=== PATIENT | female | born 1935 | race Caucasian/White ===

== ENCOUNTER 2018-11-02 13:49 | Inpatient (IN) ==
--- NOTE | 2018-11-02 14:40 | PROVIDER DOCUMENTATION ---
HPI-Neurological Disorder - General Chief Complaint: Weakness Stated Complaint: Stroke-like symptoms Time Seen by Provider: 11/02/18 14:09 Source: EMS, senior living records Unable to obtain history due to:: altered Allergies/Adverse Reactions: Patient Allergies Allergy/AdvReac Type Severity Reaction Status Date / Time No Known Allergies Allergy Verified 07/19/18 11:22 Home Medications: Home Medication List Medication Instructions Recorded Confirmed Last Taken Type Amlodipine Besylate 10 mg PO DAILY 09/08/12 11/02/18 07/16/18 History Losartan Potassium 100 mg PO DAILY 09/08/12 08/27/18 07/16/18 History Metformin [Glucophage] 1,000 mg PO BID CC 09/08/12 11/02/18 07/16/18 History Rosuvastatin Calcium [Crestor] 40 mg PO QHS 09/08/12 11/02/18 07/16/18 History Isosorbide Mononitrate [Isosorbide 30 mg PO DAILY 07/17/18 11/02/18 07/16/18 History Mononitrate ER] Levothyroxine [Synthroid] 88 microgm PO DAILY 07/17/18 11/02/18 07/17/18 History Metoprolol Succinate 25 mg PO DAILY 07/17/18 11/02/18 Unknown History Cholecalciferol (Vitamin D3) 800 unit PO DAILY 11/02/18 11/02/18 Unknown History [Vitamin D] Cyanocobalamin (Vitamin B-12) 1,000 mcg PO DAILY 11/02/18 11/02/18 Unknown History [Vitamin B12] Gabapentin 100 mg PO Q8H 11/02/18 11/02/18 Unknown History Insulin Glargine,Hum.rec.anlog 10 unit SQ QAM 11/02/18 11/02/18 Unknown History [Lantus Solostar] Insulin Regular, Human [Novolin R] 10 unit SQ QAM 11/02/18 11/02/18 Unknown History Memantine [Namenda] 5 mg PO QHS 11/02/18 11/02/18 Unknown History Multivits,Ca,Minerals/Iron/FA 1 ea PO DAILY 11/02/18 11/02/18 Unknown History [Thera M Plus Tablet] Quetiapine Fumarate [Seroquel] 25 mg PO DAILY 11/02/18 11/02/18 Unknown History Quetiapine [Seroquel] 100 mg PO QHS 11/02/18 11/02/18 Unknown History Trazodone [Desyrel] 50 mg PO QHS 11/02/18 11/02/18 Unknown History - History of Present Illness-Neuro Nature of Presenting Problem: HPI: Pt is sent to ED from [facility] today for AMS. She has PMH od Alzheimers, GERD, HTN, HLD, DM2, Hypothyroidism. They stated she has had diarrhea, nausea and vomiting for the past 3 days. They also report "abnormal labs,' but did not specifiy what labs. Her FBG was 333. They were concerned that one pupil was pinpoint and they other was normal. She is non-responsive at baseline. Onset/Duration: reports: 3 days ago Timing: reports: still present Context: reports: found unresponsive by senior living staff Approximate time patient was last seen normal?: 11:45 Character of Altered Mental Status: reports: other (pt is not responsive at baseline) Any recent trauma/injury?: reports: none New weakness or altered sensation location:: reports: none Cognitive Baseline: alert but disoriented Associated Symptoms: reports: denies symptoms Similar Symptoms Previously?: No Recently seen or treated by another doctor?: Yes Review of Systems - Adult - REVIEW OF SYSTEMS - ADULT ROS:: unobtainable per condition Constitutional: reports: no symptoms reported Eyes: reports: no symptoms reported Ears, Nose, Mouth & Throat: reports: no symptoms reported Cardiovascular: reports: no symptoms reported Respiratory: reports: no symptoms reported Gastrointestinal: reports: no symptoms reported Genitourinary: reports: no symptoms reported Musculoskeletal: reports: no symptoms reported Integumentary: reports: no symptoms reported Neurological: reports: no symptoms reported Psychiatric: reports: no symptoms reported Endocrine: reports: no symptoms reported Hematologic/Lymphatic: reports: no symptoms reported Allergic/Immunologic: reports: no symptoms reported All Other Systems: Reviewed and Negative Past History - Adult - PAST MEDICAL HISTORY-ADULT Review of Records: reports: Nursing Assessment Review, Medications Reviewed, Social history reviewed & non-contributory. Major Childhood Illnesses: reports: denies history Cardiovascular: reports: HTN, hyperlipidemia Respiratory: reports: sleep apnea Gastrointestinal: reports: GERD Obstetrical/Gynecological: reports: denies history Genitourinary: reports: denies history Musculoskeletal: reports: denies history Neurological: reports: Alzheimer's, dementia Endocrine/Immune: reports: Diabetes Other Conditions: reports: denies history - PRIOR SURGERIES/PROCEDURES Surgical/Procedure History: reports: reviewed, not pertinent, BTL, other (cataract removal, breast biopsy) - IMMUNIZATION STATUS Childhood Immunizations: See Nurse Assessment Flu Vaccine: See Nurse Assessment - FAMILY HISTORY Family History: reviewed, not pertinent - SOCIAL HISTORY Smoking: denies Substance Use: none/never Alcohol Use Frequency: never Living Situation: care facility Physical Exam- Neurological - Physical Exam-Neuro Initial Vital Signs Reviewed: Yes General Appearance: other (able to respond but is alseep in bed) Eye Exam: right eye: PERRL HENMT: normocephalic/atraumatic, moist mucous membranes, normal ENT inspection Head Injury: no evidence of injury Neck: full range of motion Respiratory: chest non-tender, lungs clear, normal breath sounds. negative: crackles, rales, rhonchi, wheezing Cardiovascular: normal peripheral pulses, regular rate, rhythm, no edema Abdominal Exam: normal bowel sounds, non tender, soft. negative: rigid, rebound, tenderness Peripheral Pulses: radial (R): 2+, radial (L): 2+, dorsalis-pedis (R): 2+, dorsalis-pedis (L): 2+ Extremity: non-tender, normal inspection, no pedal edema, calf tenderness. 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 negative: normal mood/affect, normal thought content, normal thought process, oriented x 3 - Glascow Coma Scale Best Eye Response: (2) open to pain Best Verbal Response: (2) incomprehsible sounds Best Motor Response: (4) withdraws to pain (8) Progress - PLAN OF CARE/RESULTS Progress/Plan/Lab Results: Vital Signs - 8 hr 11/02/18 14:20 11/02/18 15:32 11/02/18 15:47 Temperature 97.4 F L Pulse Rate 72 69 64 Respiratory Rate 19 21 17 Blood Pressure 74/52 81/45 87/50 O2 Sat by Pulse Oximetry 97 98 95 11/02/18 15:48 11/02/18 15:50 11/02/18 16:00 Temperature Pulse Rate 73 66 63 Respiratory Rate 17 15 15 Blood Pressure O2 Sat by Pulse Oximetry 94 L 97 95 11/02/18 16:01 11/02/18 16:10 11/02/18 16:17 Temperature Pulse Rate 67 64 63 Respiratory Rate 17 15 13 Blood Pressure 92/51 94/51 O2 Sat by Pulse Oximetry 96 93 L 11/02/18 16:20 11/02/18 16:30 11/02/18 16:32 Temperature Pulse Rate 63 67 63 Respiratory Rate 13 14 16 Blood Pressure 80/42 O2 Sat by Pulse Oximetry 100 96 97 11/02/18 16:47 11/02/18 17:02 11/02/18 17:17 Temperature Pulse Rate 63 61 62 Respiratory Rate 15 14 13 Blood Pressure 66/48 84/47 73/45 O2 Sat by Pulse Oximetry 95 100 97 11/02/18 17:32 11/02/18 17:47 11/02/18 18:02 Temperature Pulse Rate 64 63 63 Respiratory Rate 19 16 18 Blood Pressure 69/40 87/37 68/41 O2 Sat by Pulse Oximetry 97 95 11/02/18 18:16 11/02/18 18:17 11/02/18 18:20 Temperature Pulse Rate 65 64 64 Respiratory Rate 13 13 15 Blood Pressure 61/40 61/39 O2 Sat by Pulse Oximetry 99 98 11/02/18 18:30 11/02/18 18:32 11/02/18 18:40 Temperature Pulse Rate 63 65 64 Respiratory Rate 15 13 15 Blood Pressure 83/41 O2 Sat by Pulse Oximetry 100 99 96 11/02/18 18:47 11/02/18 18:50 11/02/18 19:00 Temperature Pulse Rate 75 63 64 Respiratory Rate 18 16 15 Blood Pressure 98/43 O2 Sat by Pulse Oximetry 99 97 95 11/02/18 19:02 11/02/18 19:10 11/02/18 19:17 Temperature Pulse Rate 63 62 62 Respiratory Rate 15 16 14 Blood Pressure 77/38 85/43 O2 Sat by Pulse Oximetry 95 96 98 11/02/18 19:20 11/02/18 19:30 11/02/18 19:32 Temperature Pulse Rate 63 65 64 Respiratory Rate 17 21 12 Blood Pressure 109/48 O2 Sat by Pulse Oximetry 96 98 98 11/02/18 19:40 11/02/18 19:47 11/02/18 19:50 Temperature Pulse Rate 63 62 62 Respiratory Rate 13 13 13 Blood Pressure 90/47 O2 Sat by Pulse Oximetry 96 99 98 11/02/18 20:00 11/02/18 20:02 Temperature Pulse Rate 62 62 Respiratory Rate 13 12 Blood Pressure 104/51 O2 Sat by Pulse Oximetry 98 96 Laboratory Results - last 24 hr 11/02/18 11/02/18 11/02/18 14:45 14:45 14:45 WBC 15.87 H RBC 4.48 Hgb 13.3 Hct 41.1 MCV 91.7 MCH 29.7 MCHC 32.4 L RDW Std Deviation 15.4 H Plt Count 282 MPV 10.6 H Immature Gran % (Auto) 0.3 Neut % (Auto) 84.2 H Lymph % (Auto) 9.7 L [place] % (Auto) 5.4 Eos % (Auto) 0.2 Baso % (Auto) 0.2 Immature Gran # (Auto) 0.04 Neut # (Auto) 13.38 H Lymph # (Auto) 1.54 [place] # (Auto) 0.85 H Eos # (Auto) 0.03 Baso # (Auto) 0.03 Sodium 152 H Potassium 4.2 Chloride 118 H Carbon Dioxide 18 L Anion Gap 16 BUN 67 H Creatinine 2.4 H Estimated GFR/1.73 m2 19 BUN/Creatinine Ratio 28 Glucose 304 H POC Glucose Calculated Osmolality 333 Calcium 10.1 Total Bilirubin 0.42 AST 14 ALT 30 Alkaline Phosphatase 92 Creatine Kinase 28 Troponin T 0.025 Total Protein 6.1 L Albumin 3.5 Globulin 2.6 Albumin/Globulin Ratio 1.3 Urine Source Urine Color Urine Turbidity Urine pH Ur Specific [place] Urine Protein Ur Glucose (Stick) Ur Ketones (Stick) Urine Blood Urine Nitrite Urine Bilirubin Urobilinogen Dipstick Urine Leukocytes Urine WBC (Auto) Urine RBC (Auto) U Epithel Cells (Auto) Urine Bacteria (Auto) Urine Crystals Small Round Cells Urine Casts Urine Yeast-like Cells 11/02/18 11/02/18 14:52 15:40 WBC RBC Hgb Hct MCV MCH MCHC RDW Std Deviation Plt Count MPV Immature Gran % (Auto) Neut % (Auto) Lymph % (Auto) [place] % (Auto) Eos % (Auto) Baso % (Auto) Immature Gran # (Auto) Neut # (Auto) Lymph # (Auto) [place] # (Auto) Eos # (Auto) Baso # (Auto) Sodium Potassium Chloride Carbon Dioxide Anion Gap BUN Creatinine Estimated GFR/1.73 m2 BUN/Creatinine Ratio Glucose POC Glucose 398 H D Calculated Osmolality Calcium Total Bilirubin AST ALT Alkaline Phosphatase Creatine Kinase Troponin T Total Protein Albumin Globulin Albumin/Globulin Ratio Urine Source CATH Urine Color ORANGE Urine Turbidity HAZY Urine pH 5.0 Ur Specific [place] 1.022 Urine Protein 50 A Ur Glucose (Stick) NEGATIVE Ur Ketones (Stick) NEGATIVE Urine Blood SMALL A Urine Nitrite NEGATIVE Urine Bilirubin NEGATIVE Urobilinogen Dipstick 2 A Urine Leukocytes LARGE A Urine WBC (Auto) TNTC A Urine RBC (Auto) <10 U Epithel Cells (Auto) <10 Urine Bacteria (Auto) 4+ Urine Crystals Not Reportable Small Round Cells Not Reportable Urine Casts Not Reportable Urine Yeast-like Cells NONE SEEN Orders Category Date Time Status Admit - [facility] Routine AdmDCTranf 11/02/18 16:30 Active Admit [facility] Routine AdmDCTranf 11/02/18 19:15 Active Foy [place] ORDERED Care 11/02/18 19:16 Active Vital Signs Order Q 8-HR .ASSESS Care 11/02/18 16:30 Completed NPO Diet 11/02/18 19:15 Active CHEST-2 VIEWS [RAD] Stat Exams 11/02/18 14:[address] HEAD W/O CONTRAST [CT] Stat Exams 11/02/18 14:25 Completed BASIC METABOLIC PANEL [CHEM] Lab 11/03/18 06:00 Uncollected BASIC METABOLIC PANEL [CHEM] Lab 11/04/18 06:00 Uncollected BASIC METABOLIC PANEL [CHEM] Lab 11/05/18 06:00 Uncollected BLOOD CULTURE [BLDCUL] Stat Lab 11/02/18 17:48 Results CBC WITH DIFF [HEME] Lab 11/03/18 06:00 Uncollected CBC WITH DIFF [HEME] Lab 11/04/18 06:00 Uncollected CBC WITH DIFF [HEME] Lab 11/05/18 06:00 Uncollected CBC WITH ELECTRONIC DIFF [HEME] Stat Lab 11/02/18 14:45 Completed CK PROFILE [SP CHEM] Stat Lab 11/02/18 14:45 Completed COMPREHENSIVE METABOLIC PANEL [CHEM] Stat Lab 11/02/18 14:45 Completed STOOL CULTURE [RM] Stat Lab 11/02/18 19:16 Uncollected Stool [C DIFF TOXIN PL] Stat Lab 11/02/18 19:17 Uncollected Stool [OCCULT BLOOD SCREENING] [STOOL] Stat Lab 11/02/18 19:16 Uncollected TROPONIN T Stat Lab 11/02/18 14:45 Completed URINALYSIS W/POSS RFLX CULT [URINALYSIS] Stat Lab 11/02/18 15:40 Completed URINE CULTURE [RM] Routine Lab 11/02/18 16:40 Received URINE MANUAL MICROSCOPIC [URINALYSIS] Stat Lab 11/02/18 15:40 Completed WBC STOOL [STOOL] Stat Lab 11/02/18 19:16 Uncollected 0.9% Sodium Chloride Inj [Ns] 1,000 ml Med 11/02/18 19:30 Active IV 125 mls/hr 0.9% Sodium Chloride Inj [Ns] 1,000 ml Med 11/02/18 16:12 Discontinued IV 999 mls/hr 0.9% Sodium Chloride Inj [Ns] 1,000 ml Med 11/02/18 18:18 Discontinued IV 999 mls/hr 0.9% Sodium Chloride Inj [Ns] 500 ml Med 11/02/18 15:03 Discontinued IV Wide Open mls/hr CefTRIAXONE [Rocephin] 1 gm Med 11/02/18 15:32 Discontinued 0.9% Sodium Chloride Inj [Ns] 50 ml IV NOW Dextrose 5%-0.45% NaCl Inj [D5 1/2 Ns] 250 ml Med 11/02/18 19:30 Active Norepinephrine [Levophed] 8 mg IV As Directed mls/hr Insulin Human Regular [Humulin R] Med 11/02/18 16:07 Discontinued 6 unit IV NOW ONE Levofloxacin 250 mg/D5w [Levaquin 250 mg/D5w] Med 11/02/18 19:30 Active 250 mg in 50 ml IV Q24H Oxygen Device Routine Oth 11/02/18 16:30 Active EKG [EKG] Stat Ther 11/02/18 14:24 Draft Transfer/Admit Order [TRANSFER] Routine Transfer 11/02/18 16:32 Completed Transfer/Admit Order [TRANSFER] Routine Transfer 11/02/18 19:03 Ordered Result Diagrams: 11/02/18 14:45 11/02/18 14:45 - EKG 1 Time of EKG reading by physician:: 15:00 EKG Read and Signed by:: German Marshall EKG Interpretation (*Must complete 3 of following elements*): Abnormal Rate: 67 Rhythm: NSR [place]: left QRS: normal [place] Interval: normal ST Wave: normal Prior EKG Comparison: unchanged from prior - XRAY 1 XRAY Study: Chest Impression: Abnormal ([facility] [address], [address], [place] [address] Department of Imaging Patient: MARGARETH MONTALVODM Date: 11/02/18#: [id number] : 1935DM Status: PRE ERAcct#: [id number] Age/Sex: 83/FRoom/Bed: Loc: ED Ordering Physician: German Marshall MD Family Physician: Ana Lilia Valle MD Reason for Procedure: ams Signed EXAM: CHEST-2 VIEWS HISTORY: ams TECHNIQUE: Chest two views COMPARISON: 08/27/2018 FINDINGS: The lungs are well expanded. The heart is not enlarged. The vessels are not distended. There are no infiltrates. No pleural effusions. There are multiple thoracic co mpression fractures. Long-standing arthritis to the shoulders. IMPRESSION: No acute abnormality. Electronically signed by Edwin Elizabeth 11/02/2018 3:13 PM 11/02/181512 Interpreting Physician: Edwin Elizabeth MD Dictated Date/Time: 11/02/181512 cc: German Marshall MD; Ana Lilia Valle MD) - CT/MRI 1 CT Study: Head Impression: Abnormal Comparison with other Films: no changes ([facility] [address], [place] [address] Department of Imaging Patient: MARGARETH MONTALVO Date: 11/02/18#: [id number] : 1935DM Status: PRE ERAt#: [id number] Age/Sex: 83/FRoom/Bed: Loc: ED Ordering Physician: German Marshall MD Family Physician: Ana Lilia Valle MD Reason for Procedure: strokelike symptoms Signed EXAM: CT HEAD W/O CONTRAST HISTORY: strokelike symptoms TECHNIQUE: CT head without contrast COMPARISON: 08/27/2018 FINDINGS: No parenchymal hemorrhage. No epidural or subdural hematoma. No subarachnoid hemorrhage. There is atrophy with chronic microvascular ischemic changes. No mass identified on this noncontrasted exam. No hydrocephalus. No sinus opacification. IMPRESSION: 1.No hemorrhage 2.Atrophy with chronic microvascular ischemic changes This exam was performed using automated exposure control, adjustment of mA or kV according to patient size, and/or use of iterative reconstruction technique. Electronically signed by Edwin Elizabeth 11/02/2018 2:42 PM 11/02/18 1442 Interpreting Physician: Edwin Elizabeth MD Dictated Date/Time: 11/02/18 1438 cc: German Marshall MD; Ana Lilia Valle MD) Departure - Departure Date of Disposition Decision: 11/02/18 Time of Disposition Decision: 15:35 DIAGNOSIS: Altered mental status, JAMES (acute kidney injury), Dehydration Disposition: ADMITTED INPATIENT 09 Certified Medical Emergency: Emergent Condition: Stable - Critical Care Note This patient required my direct & personal management of CC.: No Attestation - Physician/ GREGORIO Attestation Patient care was provided by Advanced Practice Provider:: No The physician spent face to face time with patient:: Yes Advanced Practice Provider documentation review:: Supervising physician onsite and consulted in the evaluation and care of this patient. The physician did have a face to face encounter with the patient.
--- NOTE | 2018-11-02 14:44 | Diag Imaging Result Doc PS360 ---
EXAM: CT HEAD W/O CONTRAST HISTORY: strokelike symptoms TECHNIQUE: CT head without contrast COMPARISON: 08/27/2018 FINDINGS: No parenchymal hemorrhage. No epidural or subdural hematoma. No subarachnoid hemorrhage. There is atrophy with chronic microvascular ischemic changes. No mass identified on this noncontrasted exam. No hydrocephalus. No sinus opacification. IMPRESSION: 1.No hemorrhage 2.Atrophy with chronic microvascular ischemic changes This exam was performed using automated exposure control, adjustment of mA or kV according to patient size, and/or use of iterative reconstruction technique. Electronically signed by Edwin Elizabeth 11/02/2018 2:42 PM
[2018-11-02] MEDS ORDERED: NS 500 ML IV ONE (15:03)
[2018-11-02 15:05] LABS: BASO# 0.03 X1000 (0.0-0.2); BASO% 0.2 % (0.0-0.8); EOS# 0.03 X1000 (0.0-0.7); EOS% 0.2 % (0.0-10.0); HEMATOCRIT 41.1 % (37.0-47.0); HEMOGLOBIN 13.3 g/dL (12.0-16.0); IMM GRAN# 0.04 X1000 (0.0-0.04); IMM GRAN% 0.3 % (0.0-0.5); LYMPH# 1.54 X1000 (1.2-3.4); LYMPH% 9.7 % (20.5-51.1); MCH 29.7 PG (27-31); MCHC 32.4 g/dL (33-37); MCV 91.7 FL (81-99); MONO# 0.85 X1000 (0.11-0.59); MONO% 5.4 % (1.7-9.3); MPV 10.6 FL (7.4-10.4); NEUT# 13.38 X1000 (1.4-6.5); NEUT% 84.2 % (42.2-75.2); PLT 282 X1000 (130-400); RBC 4.48 XMIL (4.2-5.4); RDW 15.4 % (11.5-14.5); WBC 15.87 X1000 (4.8-10.8)
--- NOTE | 2018-11-02 15:16 | Diag Imaging Result Doc PS360 ---
EXAM: CHEST-2 VIEWS HISTORY: ams TECHNIQUE: Chest two views COMPARISON: 08/27/2018 FINDINGS: The lungs are well expanded. The heart is not enlarged. The vessels are not distended. There are no infiltrates. No pleural effusions. There are multiple thoracic compression fractures. Long-standing arthritis to the shoulders. IMPRESSION: No acute abnormality. Electronically signed by Edwin Elizabeth 11/02/2018 3:13 PM
[2018-11-02 15:29] LABS: ALB/GLOB RATIO 1.3; ALBUMIN 3.5 g/dL (3.5-5.0); CALCIUM 10.1 mg/dL (8.8-10.2); CREATININE 2.4 mg/dL (0.5-0.9); POTASSIUM 4.2 mmol/L (3.5-5.1); TOTAL BILIRUBIN 0.42 mg/dL (0.20-1.00); TOTAL PROTEIN 6.1 g/dL (6.3-8.3)
--- NOTE | 2018-11-02 15:31 | EKG Report ---
Test Performed on : 11/02/2018 2:53:52 PM Test Reason : ams Blood Pressure : / mmHG Vent. Rate : 067 BPM Atrial Rate : 067 BPM P-R Int : 136 ms QRS Dur : 096 ms QT Int : 438 ms P-R-T Axes : 019 -46 069 degrees QTc Int : 462 ms Normal sinus rhythm. Left axis deviation Moderate voltage criteria for LVH, may be normal variant Cannot rule out Septal infarct (cited on or before 19-JUL-2018) Abnormal ECG When compared with ECG of 02-NOV-2018 14:53, (Unconfirmed) No significant change was found Unconfirmed Result
[2018-11-02] MEDS ORDERED: ROCEPHIN 1 GM in NS 50 ML IV ONE (15:32)
[2018-11-02 15:56] LABS: URINE SOURCE CATH
[2018-11-02] MEDS ORDERED: HUMULIN R IV ONE (16:07)
[2018-11-02] MEDS ORDERED: NS 1,000 ML IV ONE ×2 (16:12→18:18)
[2018-11-02 16:18] LABS: BILIRUBIN URINE NEGATIVE (NEGATIVE); BLOOD URINE SMALL (NEGATIVE); COLOR ORANGE; GLUCOSE URINE NEGATIVE (NEGATIVE); KETONE URINE NEGATIVE (NEGATIVE); LEUKOCYTES URINE LARGE (NEGATIVE); NITRITE URINE NEGATIVE (NEGATIVE); PROTEIN URINE 50 mg/dL (NEGATIVE); SP GRAVITY URINE 1.022; TURBIDITY URINE HAZY (CLEAR); UROBILINOGEN URINE 2 mg/dL (NORMAL)
[2018-11-02 16:23] LABS: UR EPITHELIAL CELLS <10 /HPF (<10); URINE BACTERIA 4+ /HPF; URINE RBC <10 /HPF (<10); URINE WBC TNTC /HPF (<10)
[2018-11-02 16:46] LABS: URINE YEAST NONE SEEN
[2018-11-02] MEDS ORDERED: NS 1,000 ML IV SCH (19:30)
[2018-11-02] MEDS ORDERED: LEVAQUIN 250 MG/D5W 250 MG/50 ML IVPB IV SCH (19:30)
[2018-11-02] MEDS: LEVOPHED 8 MG in D5 1/2 NS 250 ML IV SCH (20:41)
[2018-11-02] MEDS ORDERED: SODIUM CHLORIDE 0.9% INJ SCH (21:45)
[2018-11-02] MEDS ORDERED: PROTONIX IV SCH (21:45)
--- NOTE | 2018-11-02 22:01 | HISTORY AND PHYSICAL ---
CHIEF COMPLAINT: Complains of diarrhea, abdominal cramps, unresponsive, low blood pressure, dehydration. HISTORY OF PRESENT ILLNESS: She is an 83-year-old white female, noncompliant, was [facility] with the above symptoms. The patient was obtunded, dehydrated, hypernatremic. Dehydration as well as kidney failure. She has UTI. The patient was given IV fluids, started on IV Levophed and antibiotics. Panculture workup was done. The patient is in diapers. Family was not there at bedside. She is waiting to be admitted in ICU because of low blood pressure. Foy was ordered to be placed. Stool sample is yet to be received. Basically admitted to the hospital with possible sepsis, shock and dehydration. The patient is getting boluses now. PAST MEDICAL HISTORY: In the past, uncontrolled diabetes, primary generalized osteoarthritis, hyperlipidemia, hypertension, hypothyroidism, dementia, postmenopausal, osteoporosis, vitamin B12 deficiency. PAST SURGICAL HISTORY: Cholecystectomy, bilateral cataract surgery, tubal ligation, benign breast biopsy. ALLERGIES: Not known. HOME MEDICATIONS: 1. Losartan 100 daily. 2. Amlodipine 10 daily. 3. Crestor 40 daily. 4. Metformin 1000 p.o. b.i.d. 5. Metoprolol 25 daily. 6. Isosorbide ER 30 mg daily. 7. Synthroid 88 mcg daily. 8. Vitamin B12, 1000 mcg daily. 9. Gabapentin 100 p.o. q.8. 10. Lantus SoloSTAR 10 in the morning. 11. Regular insulin 10 units subcutaneously every a.m. 12. Namenda 5 mg at bedtime. 13. Multivitamin 1 tablet daily. 14. Seroquel 25 daily. 15. Trazodone 50 daily. 16. Vitamin D 800 units daily. 17. Seroquel 100 at bedtime. ALLERGIES: Not known. SOCIAL HISTORY: Currently , living in [facility]. Four children. No smoking. No alcohol. FAMILY HISTORY: Father of bleeding ulcer at 75, mother of heart failure at 63. Siblings of lung cancer and stroke. HEALTH MAINTENANCE: Flu vaccine in 2018, pneumococcal 07/23/2018. Colonoscopy in 2010, mammography 07/2016, DEXA scan 07/2016. REVIEW OF SYSTEMS: Unable to obtain. The patient is obtunded and confused. PHYSICAL EXAMINATION: VITAL SIGNS: She has a low blood pressure, 70/60. Slightly tachycardic. GENERAL: She is completely confused, moaning with painful stimulus. HEENT: Pupils equal and reactive to light. Dry mucous membranes. CHEST: Bilateral air entry. HEART: Sounds are tachycardic. ABDOMEN: Belly is soft, scaphoid. GENITOURINARY: She is in diapers. EXTREMITIES: No peripheral edema. NEUROLOGIC: No obvious neurological deficits. LABORATORY DATA: CBC: White cell count 15.8, hematocrit 41, platelets 282,000. SMA 7: Sodium 152, potassium 4.2, BUN 67, creatinine 2.4, glucose 304. Liver function tests, cardiac enzymes were negative. Blood cultures and urine cultures are pending. DIAGNOSTIC DATA: CT head: No hemorrhage; chronic ischemic changes. EKG: Normal sinus; left axis deviation; nothing acute. ASSESSMENT AND PLAN: 1. An 83-year-old white female admitted to intensive care unit, waiting to be admitted for possible sepsis from urinary tract infection with dehydration, hypernatremia, acute kidney injury. Plan of care: (1) Foy catheter. (2) intravenous fluids, boluses 2 L followed by 125 mL/h. (3) If no better, consider vasopressors. (4) Intravenous antibiotics were given, Levaquin 250 intravenously once daily. Follow up on panculture workup. (5) Diet: NPO. 2. Diabetes. We will follow up on insulin with sliding coverage. 3. Deep venous thrombosis and gastrointestinal prophylaxis with Lovenox and Protonix, respectively. We will hold the home medications at this time. 4. Son is not there to be discussed with advanced directives. Right now she is Full Code. 5. Diarrhea. We will follow up on stool cultures. The patient is critically ill. Level of documentation more than 60 minutes. cc: Anthony Valle MD
[2018-11-03] MEDS: LEVOPHED 8 MG in D5 1/2 NS 250 ML IV SCH (07:00)
[2018-11-03] MEDS ORDERED: HUMULIN R SUBQ SCH (07:00)
[2018-11-03] MEDS ORDERED: LEVAQUIN 250 MG/D5W 250 MG/50 ML IVPB IV ONE (07:53)
[2018-11-03] MEDS: PROTONIX IV SCH (08:00)
[2018-11-03 09:43] LABS: BASO# 0.02 X1000 (0.0-0.2); BASO% 0.2 % (0.0-0.8); EOS% 0.8 % (0.0-10.0); HEMATOCRIT 41.7 % (37.0-47.0); HEMOGLOBIN 13.6 g/dL (12.0-16.0); IMM GRAN# 0.04 X1000 (0.0-0.04); IMM GRAN% 0.3 % (0.0-0.5); LYMPH# 2.15 X1000 (1.2-3.4); LYMPH% 16.2 % (20.5-51.1); MCH 29.4 PG (27-31); MCHC 32.6 g/dL (33-37); MCV 90.1 FL (81-99); MONO# 0.85 X1000 (0.11-0.59); MONO% 6.4 % (1.7-9.3); MPV 10.6 FL (7.4-10.4); NEUT# 10.09 X1000 (1.4-6.5); NEUT% 76.1 % (42.2-75.2); PLT 230 X1000 (130-400); RBC 4.63 XMIL (4.2-5.4); RDW 14.9 % (11.5-14.5); WBC 13.25 X1000 (4.8-10.8)
[2018-11-03] MEDS ORDERED: D50W SYRINGE IV ONE ×2 (09:55→20:43)
[2018-11-03 10:16] LABS: CALCIUM 9.4 mg/dL (8.8-10.2); CREATININE 1.6 mg/dL (0.5-0.9); POTASSIUM 3.8 mmol/L (3.5-5.1)
[2018-11-03] MEDS ORDERED: D5 NS 1,000 ML IV SCH (20:45)
[2018-11-03] MEDS ORDERED: D50W SYRINGE ONE (20:48)
--- NOTE | 2018-11-03 21:59 | PROGRESS NOTE ---
DATE: 11/03/2018 SUBJECTIVE: The patient is still obtunded. Foy was placed. Hemodynamics are stable. Still on IV fluids and Levophed. No family in the ER, waiting to be admitted either in CIC or ICU. REVIEW OF SYSTEMS: Not able to obtain. EXAMINATION: General: The patient is dry, obtunded. Easily easily arousable, still confused. Chest: Clear. Heart: Sounds are regular. Abdomen: Belly is soft, nontender. Foy was placed. INVESTIGATIONS: CBC: White cell count 13, hematocrit 41.7, platelets 230. Sodium 156, potassium 3.8, BUN 47, creatinine 1.6. Blood sugar dropped to 69. ASSESSMENT AND PLAN: 1. Dementia with altered mental status due to dehydration. 2. Urinary tract infection. 3. Hypotension. 4. Possible sepsis versus dehydration. 5. Acute kidney injury due to azotemia. 6. Hyponatremic. 7. Dehydration. PLAN: 1. Slowly wean off Levophed. Continue IV fluids. 2. D50 1 ampule. Follow up on sliding scale for sugar. 3. Diarrhea. Waiting for stool cultures. 4. Urinary tract infection on Levaquin. 5. DVT, GI prophylaxis as per order sheet and will discuss with advanced directives. 6. Will hold the home medications and continue to monitor. LEVEL OF DOCUMENTATION: 25 minutes. cc: Anthony Valle MD
[2018-11-03] MEDS: HUMULIN R SUBQ SCH (22:05)
[2018-11-03] MEDS: D5W 1,000 ML IV SCH (23:56)
[2018-11-04 06:12] LABS: BASO# 0.01 X1000 (0.0-0.2); BASO% 0.1 % (0.0-0.8); EOS# 0.11 X1000 (0.0-0.7); HEMATOCRIT 38.2 % (37.0-47.0); IMM GRAN# 0.02 X1000 (0.0-0.04); IMM GRAN% 0.2 % (0.0-0.5); LYMPH# 1.91 X1000 (1.2-3.4); LYMPH% 16.7 % (20.5-51.1); MONO# 0.84 X1000 (0.11-0.59); MONO% 7.3 % (1.7-9.3); MPV 10.7 FL (7.4-10.4); NEUT# 8.58 X1000 (1.4-6.5); NEUT% 74.7 % (42.2-75.2); PLT 190 X1000 (130-400); RBC 4.34 XMIL (4.2-5.4); RDW 14.5 % (11.5-14.5); WBC 11.47 X1000 (4.8-10.8)
[2018-11-04 06:19] LABS: CALCIUM 8.8 mg/dL (8.8-10.2); CREATININE 1.3 mg/dL (0.5-0.9); POTASSIUM 2.9 mmol/L (3.5-5.1)
[2018-11-04] MEDS: HUMULIN R SUBQ SCH ×5 (06:33→21:30)
[2018-11-04] MEDS: LEVAQUIN 250 MG/D5W 250 MG/50 ML IVPB IV SCH (09:21)
[2018-11-04] MEDS: LOVENOX SUBQ SCH (09:21)
[2018-11-04] MEDS: PROTONIX IV SCH (09:21)
[2018-11-04] MEDS: POTASSIUM CHLORIDE 40 MEQ in NS 250 ML IV SCH ×2 (09:28→17:12)
[2018-11-04] MEDS: D5W 1,000 ML IV SCH (17:12)
[2018-11-04] MEDS ORDERED: BLISTEX MEDICATED BERRY LIP BALM TOP PRN (17:18)
--- NOTE | 2018-11-04 21:22 | PROGRESS NOTE ---
DATE: 11/04/2018 SUBJECTIVE: The patient's mental status is improving. No family is at bedside. She wants to drink and mental status verbally conversing and keep on pulling the bed sheets. OBJECTIVE: Vital signs: Temperature is 98 degrees, pulse is 84, blood pressure 137/95. HEENT Exam: Dry mucous membranes. Chest: Clear. Cardiovascular: Heart sounds are regular. Abdomen: Belly soft. Genitourinary: Foy placed. Neurological: No neurological deficits. LABORATORY DATA: White cell count 11.4, hematocrit 38, platelets 190,000. SMA7: Sodium 152, potassium 2.9, chloride 116, BUN 32, creatinine 1.3, glucose 179. ASSESSMENT AND PLAN: 1. Acute metabolic encephalopathy, improving. 2. Dementia, stable. 3. Hyponatremic dehydration, improving. Continue dextrose 75 mL/h. 4. Speech evaluation for feeding. 5. Hypokalemia. Replace the potassium. 6. Deep venous thrombosis prophylaxis with Lovenox. 7. Urinary tract infection on IV Levaquin. Continue to monitor blood workup. 8. Diarrhea. No significant bowel movements noted. 9. We will discuss with the family about advanced directives. LEVEL OF DOCUMENTATION: 35 minutes. cc: Anthony Valle MD
[2018-11-05 05:35] LABS: BASO# 0.02 X1000 (0.0-0.2); BASO% 0.2 % (0.0-0.8); EOS# 0.14 X1000 (0.0-0.7); EOS% 1.5 % (0.0-10.0); HEMATOCRIT 38.2 % (37.0-47.0); HEMOGLOBIN 13.1 g/dL (12.0-16.0); IMM GRAN# 0.06 X1000 (0.0-0.04); IMM GRAN% 0.6 % (0.0-0.5); LYMPH# 2.14 X1000 (1.2-3.4); LYMPH% 22.4 % (20.5-51.1); MCH 29.7 PG (27-31); MCHC 34.3 g/dL (33-37); MCV 86.6 FL (81-99); MONO# 0.79 X1000 (0.11-0.59); MONO% 8.3 % (1.7-9.3); MPV 9.8 FL (7.4-10.4); NEUT# 6.39 X1000 (1.4-6.5); PLT 213 X1000 (130-400); RBC 4.41 XMIL (4.2-5.4); RDW 14.2 % (11.5-14.5); WBC 9.54 X1000 (4.8-10.8)
[2018-11-05 06:10] LABS: CALCIUM 8.8 mg/dL (8.8-10.2)
[2018-11-05] MEDS: HUMULIN R SUBQ SCH ×4 (06:30→22:16)
[2018-11-05] MEDS: D5W 1,000 ML IV SCH ×3 (06:30→22:03)
[2018-11-05] MEDS: VITAMIN B-12 PO SCH (08:40)
[2018-11-05] MEDS: VITAMIN D PO SCH (08:41)
[2018-11-05] MEDS: LEVAQUIN 250 MG/D5W 250 MG/50 ML IVPB IV SCH (08:41)
[2018-11-05] MEDS: PROTONIX IV SCH (08:41)
[2018-11-05] MEDS: LOVENOX SUBQ SCH (08:41)
--- NOTE | 2018-11-05 17:23 | PROGRESS NOTE ---
DATE: 11/05/2018 SUBJECTIVE: The patient is pleasantly confused. Passed the swallowing test. Eating diet very well. Hemodynamics were stable. PHYSICAL EXAMINATION: Vital Signs: Temperature 97.9 degrees, pulse is 87, blood pressure 120/78. HEENT Exam: Within normal limits. Neck: Supple. No lymphadenopathy. Lungs: Bilateral air entry. Heart: Heart sounds are regular. Genitourinary: The patient is in diapers with Foy. Neurologic: No obvious deficits. INVESTIGATIONS: CBC: White cell count 9.5, hematocrit 38.2, platelets 213,000. SMA-7: Sodium 143, potassium 4.0, BUN 15, creatinine 1.0, glucose 175. Urine cultures and blood cultures so far negative. ASSESSMENT AND PLAN: 1. Presumed to be urinary tract infection. Dipstick is getting better, on IV Levaquin. 2. Dehydration is better. 3. Acute kidney injury, better. 4. Continue IV fluids. Will restart the home medicines, which includes Crestor, Seroquel, vitamin D, vitamin B12, and Synthroid. 5. Will transfer her to the regular floor. Please see the transfer orders. 6. Diarrhea. No significant loose stools obtained. 7. Will discuss with the family about the Living Will and continue to see her progress for the weekend. LEVEL OF DOCUMENTATION: 25 minutes. cc: Anthony Valle MD
[2018-11-05] MEDS: CRESTOR PO SCH ×2 (22:02→22:16)
[2018-11-05] MEDS: SEROQUEL PO SCH ×2 (22:02→22:16)
[2018-11-06] MEDS: D5W 1,000 ML IV SCH ×2 (04:33→17:47)
[2018-11-06] MEDS: HUMULIN R SUBQ SCH ×4 (06:41→22:24)
[2018-11-06] MEDS: SYNTHROID PO SCH (06:43)
[2018-11-06] MEDS: LEVAQUIN 250 MG/D5W 250 MG/50 ML IVPB IV SCH (10:09)
[2018-11-06] MEDS: VITAMIN B-12 PO SCH (10:10)
[2018-11-06] MEDS: LOVENOX SUBQ SCH (10:10)
[2018-11-06] MEDS: SODIUM CHLORIDE 0.9% INJ SCH (10:10)
[2018-11-06] MEDS: PROTONIX IV SCH (10:10)
[2018-11-06] MEDS: VITAMIN D PO SCH (10:25)
--- NOTE | 2018-11-06 12:46 | PROGRESS NOTE ---
DATE: 11/06/2018 SUBJECTIVE: Patient has no family here. Transferred out of step-down and eating well. Agitated sometimes. PHYSICAL EXAMINATION: Vital signs: Temperature is 98 degrees, pulse is 80, blood pressure 125/101. HEENT: Within normal limits. Chest: Clear. Heart: Sounds are regular. Abdomen: Belly is soft, nontender. INVESTIGATIONS: None reported. ASSESSMENT: 1. Acute metabolic encephalopathy improving. 2. Possible urinary tract infection, so far no infection. 3. Tolerating the diet very well. PLAN: Continue IV fluids and reconcile home medications. Slowly increasing the Seroquel for agitation. No diarrhea noted. Will discuss with the family over the weekend, slowly transfer to the rehab. LEVEL OF DOCUMENTATION: 25 minutes. cc: Anthony Valle MD
[2018-11-06] MEDS ORDERED: SEROQUEL PO PRN (16:20)
[2018-11-06] MEDS: CRESTOR PO SCH (22:24)
[2018-11-06] MEDS: SEROQUEL PO SCH (22:24)
[2018-11-07] MEDS: D5W 1,000 ML IV SCH ×2 (00:33→14:45)
[2018-11-07] MEDS: SYNTHROID PO SCH (06:38)
[2018-11-07] MEDS: HUMULIN R SUBQ SCH ×5 (06:38→22:18)
[2018-11-07] MEDS: PROTONIX IV SCH (09:40)
[2018-11-07] MEDS: LOVENOX SUBQ SCH (09:40)
[2018-11-07] MEDS: LEVAQUIN 250 MG/D5W 250 MG/50 ML IVPB IV SCH (09:40)
[2018-11-07] MEDS: SODIUM CHLORIDE 0.9% INJ SCH (09:40)
[2018-11-07] MEDS: VITAMIN B-12 PO SCH (09:40)
[2018-11-07] MEDS: VITAMIN D PO SCH (09:40)
--- NOTE | 2018-11-07 13:27 | PROGRESS NOTE ---
DATE: 11/07/2018 SUBJECTIVE: The patient is doing better, confused, not agitated, awake. No family is around. EXAMINATION: Temperature is 98 degrees, pulse 62, vitals are stable.HEENT: Within normal limits. Chest: Clear. Heart sounds are regular. Belly is soft, nontender. No obvious deficits. DIAGNOSTIC STUDIES: Urine cultures and blood cultures were negative. No labs were obtained. ASSESSMENT AND PLAN: 1. Urinary tract infection. We will discontinue IV antibiotics. No evidence of infection. 2. Hypernatremic dehydration, improved. 3. Hemodynamics are stable. 4. Continue IV fluids. 5. Reconcile home medicines. 6. We will discuss with the family for the discharge back to [facility]. 7. Restarted home medications. 8. Continue present treatment. LEVEL OF DOCUMENTATION: 25 minutes. cc: Anthony Valle MD
[2018-11-07] MEDS: CRESTOR PO SCH (22:16)
[2018-11-07] MEDS: SEROQUEL PO SCH (22:17)
[2018-11-08] MEDS: D5W 1,000 ML IV SCH ×2 (04:06→17:06)
[2018-11-08] MEDS: SYNTHROID PO SCH (06:16)
[2018-11-08] MEDS: HUMULIN R SUBQ SCH ×4 (06:16→21:38)
[2018-11-08 08:01] LABS: BASO# 0.01 X1000 (0.0-0.2); BASO% 0.1 % (0.0-0.8); EOS# 0.19 X1000 (0.0-0.7); EOS% 1.9 % (0.0-10.0); HEMATOCRIT 40.4 % (37.0-47.0); HEMOGLOBIN 14.3 g/dL (12.0-16.0); IMM GRAN# 0.05 X1000 (0.0-0.04); IMM GRAN% 0.5 % (0.0-0.5); LYMPH# 2.19 X1000 (1.2-3.4); LYMPH% 22.1 % (20.5-51.1); MCH 29.9 PG (27-31); MCHC 35.4 g/dL (33-37); MCV 84.3 FL (81-99); MONO# 0.72 X1000 (0.11-0.59); MONO% 7.3 % (1.7-9.3); MPV 9.6 FL (7.4-10.4); NEUT# 6.75 X1000 (1.4-6.5); NEUT% 68.1 % (42.2-75.2); PLT 211 X1000 (130-400); RBC 4.79 XMIL (4.2-5.4); RDW 14.4 % (11.5-14.5); WBC 9.91 X1000 (4.8-10.8)
[2018-11-08 08:38] LABS: AGAP 13; BUN 4 mg/dL (8-22); CALCIUM 9.7 mg/dL (8.8-10.2); CHLORIDE 108 mmol/L (98-107); COSMO 282; CREATININE 0.8 mg/dL (0.5-0.9); ESTIMATED GFR > 60; GLUCOSE 127 mg/dL (70-104); POTASSIUM 3.1 mmol/L (3.5-5.1); SODIUM 142 mmol/L (136-145); TCO2 21 mmol/L (25-35)
[2018-11-08] MEDS: VITAMIN D PO SCH (09:54)
[2018-11-08] MEDS: VITAMIN B-12 PO SCH (09:54)
[2018-11-08] MEDS: PROTONIX IV SCH (09:55)
[2018-11-08] MEDS: LOVENOX SUBQ SCH (09:55)
--- NOTE | 2018-11-08 18:45 | PROGRESS NOTE ---
DATE: 11/08/2018 SUBJECTIVE: The patient is docile, awake, eating well. No family is around. PHYSICAL EXAMINATION: Vital Signs: Temperature is 97 degrees. Vitals are stable. Physical exam no change. LABORATORY DATA: CBC: White cell count 9.9, hematocrit 40, platelets 211,000. SMA 7: Potassium 3.1, BUN 4, creatinine 0.8. ASSESSMENT AND PLAN: The patient medically stable and discussed with nursing home social worker. We will send her back to rehab and continue present treatment. Hypokalemia, replace the potassium. LEVEL OF DOCUMENTATION: 15 minutes. cc: Anthony Valle MD
[2018-11-08] MEDS: POTASSIUM CHLORIDE 20 MEQ/SWI 20 MEQ/100 ML IVPB IV SCH (21:36)
[2018-11-08] MEDS: CRESTOR PO SCH (21:37)
[2018-11-08] MEDS: SEROQUEL PO SCH (21:37)
[2018-11-09] MEDS: POTASSIUM CHLORIDE 20 MEQ/SWI 20 MEQ/100 ML IVPB IV SCH (01:38)
[2018-11-09] MEDS: D5W 1,000 ML IV SCH (06:21)
[2018-11-09] MEDS: HUMULIN R SUBQ SCH (06:21)
[2018-11-09] MEDS: SYNTHROID PO SCH (06:23)
[2018-11-09] MEDS: VITAMIN D PO SCH (08:54)
[2018-11-09] MEDS: PROTONIX IV SCH (08:55)
[2018-11-09] MEDS: VITAMIN B-12 PO SCH (08:55)
[2018-11-09] MEDS: LOVENOX SUBQ SCH (08:55)
--- NOTE | 2018-11-09 09:37 | DISCHARGE SUMMARY ---
ADMISSION DATE: 11/02/2018 DISCHARGE DATE: 11/09/2018 DISCHARGING DIAGNOSES: 1. Altered mental status due to metabolic encephalopathy. 2. Dehydration due to diarrhea. 3. Type 2 diabetes. 4. Dementia with agitation. 5. Hypothyroidism. 6. Hypertension. 7. Vitamin B12 deficiency. 8. Vitamin D deficiency. 9. Chronic pain due to osteoarthritis. 10. Neuropathy. 11. Hyperlipidemia. BRIEF HISTORY: Please see the H and P that was done on 11/02/2018. In brief, she is an 83-year- old white female noncompliant, and was brought in from [facility] with above symptoms. Patient was extremely dehydrated, low blood pressure, azotemia, and possible UTI. HOSPITAL COURSE: The patient did not have any loose bowel movements. The patient was given initially IV fluids vasopressors. Subsequently discontinued, and admitted in [facility]. The patient is a full code so far. No concrete decision was made about the Living Will under advanced directives. Since I saw her the last time, she is slowly dwindling in her activities of daily living as well as instrumental activities. She is almost bedridden in diapers. She is extremely agitated with underlying dementia requiring Seroquel. Slowly, I weaned off vasopressors and changed the IV fluids to D5 half-normal saline. Electrolytes and renal function test came back normal. She passed the swallowing test eating a soft diet. I had spoke to the son, and she came back to the baseline. We will discharge her back to the rehab. At the time of discharge, labs as follows. CBC: White cell count 9.9, hematocrit 40, and platelets 211,000. Sodium 142, potassium 3.1, chloride 108, BUN 4, creatinine 0.8 and glucose 121. Urine cultures and blood cultures were negative. RADIOLOGY PROCEDURES: 1. Chest x-ray on 11/02 no acute abnormality. 2. CT head: No hemorrhage. Chronic microvascular ischemic changes. DISCHARGE INSTRUCTIONS: 1. Care of the skin, bladder, and bowels. 2. Soft puree diet. 3. Losartan 100 daily. Discontinued amlodipine. Hold the blood pressure medicines if systolic blood pressure less than 100. Crestor 40 daily. Discontinue metformin. Metoprolol 25 daily. Isosorbide 30 mg daily. Synthroid 88 mcg daily. Vitamin B12 2500 mcg daily. Gabapentin 100 q.8. Lantus 10 units subcutaneously in the morning. Continue on sliding scale with insulin coverage. Namenda 5 mg at bedtime. Multivitamin 1 tablet daily. Seroquel 25 in the morning and 100 in the evening. Trazodone 50 at bedtime. 4. Discussed the patient's son about the Living Will. At this time, no decision was made. Check the CBC SMA 7 in 1 week. 5. Continue monitoring sugars, blood pressure and volume status. cc: Anthony Valle MD
[2018-11-09 11:43] VITALS: BP 159/83
== END 2018-11-09 14:54 | DRG 682 ==
LOC: SUPCPDRO → ED 13:49 → EDIPHOLD 20:22 → 3S 11-03 20:22 → 3N 11-05 17:49
PROVIDERS: ADMIT Internal Medicine; ATTEND Internal Medicine
CPT/HCPCS: 51702; 70450; 71020; 71046; 80048; 80053; 81001; 82550; 82948; 84484; 85025; 87040; 87088; 93005; 96365; 96366; 96367; 96375; 96376; 99285; A9270; C9113; J0696; J1650; J1956; J3480; J7030; J7040; J7050; J7070; S0164; XXXXX